=== PATIENT | female | born 1955 | race Caucasian/White ===

== ENCOUNTER 2019-05-23 11:25 | Outpatient (CLI) | payer BC ==
--- NOTE | 2019-05-23 11:44 | RAD ---
EXAM: Lumbar spine 3 views: HISTORY: Low back pain for 3 weeks without trauma COMPARISON: None FINDINGS: No evidence for acute fracture or dislocation involving the visualized spine. There are disc osteophytosis and facet arthrosis changes. Grade 1 0.7 cm anterolisthesis of L4 and L5. No evidence for a bone lesion. Mild dextro scoliosis. IMPRESSION: Spondylosis. Anterolisthesis of L4 and L5. No significant acute process. Consider follow-up standing lateral flexion and extension views to eval uate for potential instability or abnormal translation.
== END 2019-05-23 11:26 | disposition home or self-care (01) ==
LOC: MADRAD 11:25
PROVIDERS: ATTEND Physician Assistant
DX: M54.5 Low back pain (principal); M47.816 Spondylosis without myelopathy or radiculopathy, lumbar region; M43.16 Spondylolisthesis, lumbar region
CPT/HCPCS: 72100